=== PATIENT | female | born 1980 | race Caucasian/White ===

== ENCOUNTER 2017-06-17 11:53 | Emergency (ER) | payer BC, OTHER ==
[~2017-06-17] VITALS: Ht 165.1 cm; Wt 62.6 kg
[2017-06-17 12:04] VITALS: BP_SYST 160
[2017-06-17] MEDS ORDERED: ONDANSETRON 4 MG ODT TAB PO ONE (13:45)
[2017-06-17] MEDS ORDERED: ACETAMINOPHEN 325 MG TABLET PO ONE (13:45)
[2017-06-17 14:03] LABS: BASOPHILS % (AUTO) 0.5 % (0.0-2.0); EOSINOPHILS # (AUTO) 0.1 K/uL (0.0-0.4); EOSINOPHILS % (AUTO) 0.8 % (0.0-4.0); HEMATOCRIT 38.5 % (36-48); HEMOGLOBIN 12.7 g/dL (12.0-16.0); LYMPHOCYTES # (AUTO) 1.1 K/uL (1.0-5.5); LYMPHOCYTES % (AUTO) 12.9 % (20.5-51.5); MEAN CORPUSCULAR HEMOGLOBIN 29 pg (27-31); MEAN CORPUSCULAR HGB CONC 33 % (32-36); MEAN CORPUSCULAR VOLUME 87 fL (79.0-98.0); MONOCYTES # (AUTO) 0.5 K/uL (0.0-1.0); MONOCYTES % (AUTO) 5.7 % (1.7-9.3); NEUTROPHILS # (AUTO) 6.8 K/uL (1.8-7.7); NEUTROPHILS % (AUTO) 80.1 % (40.0-70.0); PLATELET COUNT (AUTO) 451 K/uL (130-430); RED BLOOD CELL COUNT(AUTO) 4.42 MIL/uL (4.2-6.2); RED CELL DISTRIBUTION WIDTH 14.5 % (9.0-15.0); WHITE BLOOD COUNT (AUTO) 8.5 K/uL (4.8-10.8)
[2017-06-17 14:13] LABS: BILIRUBIN,URINE NEGATIVE (NEGATIVE); BLOOD, URINE NEGATIVE (NEGATIVE); CLARITY/URINE CLEAR (CLEAR); COLOR,URINE YELLOW (YELLOW); GLUCOSE,URINE NEGATIVE (NEGATIVE); KETONES,URINE NEGATIVE (NEGATIVE); LEUKOCYTE ESTERASE ,URINE NEGATIVE (NEGATIVE); NITRITE, URINE NEGATIVE (NEGATIVE); PH,URINE 6.5 (5.0-8.0); PROTEIN URINE NEGATIVE (NEGATIVE); UROBILINOGEN,URINE 0.2 (0.2-1.0)
[2017-06-17 14:20] LABS: CALCIUM 8.8 mg/dL (8.4-11.0); CREATININE 0.67 mg/dL (0.55-1.30); POTASSIUM 4.4 mmol/L (3.5-5.1)
[2017-06-17 14:46] LABS: ALBUMIN 3.6 g/dL (3.4-4.8); TOTAL BILIRUBIN 0.3 mg/dL (0.0-1.0)
[2017-06-17 17:00] VITALS: BP_SYST 147
== END 2017-06-17 17:00 | disposition home or self-care (01) ==
LOC: SED 11:53
DX: O26.891 Other specified pregnancy related conditions, first trimester (principal); R10.2 Pelvic and perineal pain; M79.601 Pain in right arm; R03.0 Elevated blood-pressure reading, without diagnosis of hypertension; Z87.891 Personal history of nicotine dependence; Z3A.01 Less than 8 weeks gestation of pregnancy
CPT/HCPCS: 36415; 76801; 76817; 80053; 81003; 81025; 84702; 85025; 87210; 99285; Q0162; 86901

== ENCOUNTER 2020-03-31 22:41 | Emergency (ER) | payer BC, MEDICAID ==
[~2020-03-31] VITALS: Ht 162.6 cm; Wt 61.2 kg
[2020-03-31 22:45] VITALS: BP_SYST 161
[2020-03-31] MEDS ORDERED: NACL 0.9% 1,000 ML IV ONE (23:45)
[2020-03-31] MEDS ORDERED: ONDANSETRON HCL 4 MG/2 ML VIAL IVP ONE (23:45)
[2020-03-31] MEDS ORDERED: KETOROLAC TROMETHAMINE 30 MG VIAL IVP ONE (23:45)
[2020-03-31 23:57] LABS: BASOPHILS % (AUTO) 0.8 % (0.0-2.0); EOSINOPHILS # (AUTO) 0.1 K/uL (0.0-0.4); EOSINOPHILS % (AUTO) 1.7 % (0.0-4.0); HEMATOCRIT 37.3 % (36-48); HEMOGLOBIN 12.8 g/dL (12.0-16.0); LYMPHOCYTES # (AUTO) 1.5 K/uL (1.0-5.5); LYMPHOCYTES % (AUTO) 30.2 % (20.5-51.5); MEAN CORPUSCULAR HEMOGLOBIN 30 pg (27-31); MEAN CORPUSCULAR HGB CONC 34 % (32-36); MEAN CORPUSCULAR VOLUME 88 fL (79.0-98.0); MONOCYTES # (AUTO) 0.5 K/uL (0.0-1.0); MONOCYTES % (AUTO) 10.8 % (1.7-9.3); NEUTROPHILS # (AUTO) 2.8 K/uL (1.8-7.7); NEUTROPHILS % (AUTO) 56.5 % (40.0-70.0); PLATELET COUNT (AUTO) 422 K/uL (130-430); RED BLOOD CELL COUNT(AUTO) 4.23 MIL/uL (4.2-6.2); RED CELL DISTRIBUTION WIDTH 13.8 % (9.0-15.0)
[2020-04-01 00:11] LABS: CALCIUM 8.6 mg/dL (8.4-11.0); CREATININE 0.88 mg/dL (0.55-1.30); POTASSIUM 3.8 mmol/L (3.5-5.1)
[2020-04-01 00:12] LABS: BILIRUBIN,URINE NEGATIVE (NEGATIVE); BLOOD, URINE 2+ (NEGATIVE); CLARITY/URINE CLEAR (CLEAR); COLOR,URINE YELLOW (YELLOW); GLUCOSE,URINE NEGATIVE (NEGATIVE); KETONES,URINE 1+ (NEGATIVE); LEUKOCYTE ESTERASE ,URINE NEGATIVE (NEGATIVE); NITRITE, URINE NEGATIVE (NEGATIVE); PROTEIN URINE NEGATIVE (NEGATIVE); UROBILINOGEN,URINE 0.2 (0.2-1.0)
[2020-04-01 00:21] LABS: BACTERIA,URINE MODERATE /HPF (None Seen); WBC,URINE 0-3 /HPF (0-3)
[2020-04-01 00:22] LABS: ALBUMIN 3.8 g/dL (3.4-4.8); TOTAL BILIRUBIN 1.2 mg/dL (0.0-1.0)
[2020-04-01 03:14] VITALS: BP_SYST 134
== END 2020-04-01 03:14 | disposition home or self-care (01) ==
LOC: SED 22:41
DX: D25.9 Leiomyoma of uterus, unspecified (principal); R19.7 Diarrhea, unspecified; R10.2 Pelvic and perineal pain; R10.33 Periumbilical pain; I10 Essential (primary) hypertension; F17.200 Nicotine dependence, unspecified, uncomplicated
CPT/HCPCS: 36415; 74176; 76856; 80053; 81000; 81025; 83690; 84702; 85025; 87086; 96361; 96374; 96375; 99285; J1885; J2405; J7030

== ENCOUNTER 2023-01-19 19:57 | Emergency (ER) | payer MEDICAID, OTHER ==
[~2023-01-19] VITALS: Ht 162.6 cm; Wt 63.5 kg
[2023-01-19 20:00] VITALS: BP_SYST 161; PULSE 117; RESP 18; TEMP 97.8; O2SAT 100
[2023-01-19 22:36] LABS: BASOPHILS % (AUTO) 0.8 % (0.0-2.0); EOSINOPHILS # (AUTO) 0.1 K/uL (0.0-0.4); EOSINOPHILS % (AUTO) 1.7 % (0.0-4.0); HEMATOCRIT 34.6 % (36-48); LYMPHOCYTES # (AUTO) 1.3 K/uL (1.0-5.5); LYMPHOCYTES % (AUTO) 23.7 % (20.5-51.5); MEAN CORPUSCULAR HEMOGLOBIN 27 pg (27-31); MEAN CORPUSCULAR HGB CONC 32 % (32-36); MEAN CORPUSCULAR VOLUME 85 fL (79.0-98.0); MONOCYTES # (AUTO) 0.6 K/uL (0.0-1.0); MONOCYTES % (AUTO) 11.7 % (1.7-9.3); NEUTROPHILS # (AUTO) 3.4 K/uL (1.8-7.7); NEUTROPHILS % (AUTO) 62.1 % (40.0-70.0); PLATELET COUNT (AUTO) 378 K/uL (130-430); RED BLOOD CELL COUNT(AUTO) 4.06 MIL/uL (4.2-6.2); RED CELL DISTRIBUTION WIDTH 17.2 % (9.0-15.0); WHITE BLOOD COUNT (AUTO) 5.5 K/uL (4.8-10.8)
[2023-01-19 22:49] LABS: BILIRUBIN,URINE NEGATIVE (NEGATIVE); BLOOD, URINE NEGATIVE (NEGATIVE); CLARITY/URINE CLEAR (CLEAR); COLOR,URINE YELLOW (YELLOW); GLUCOSE,URINE NEGATIVE (NEGATIVE); KETONES,URINE NEGATIVE (NEGATIVE); LEUKOCYTE ESTERASE ,URINE NEGATIVE (NEGATIVE); NITRITE, URINE NEGATIVE (NEGATIVE); PROTEIN URINE NEGATIVE (NEGATIVE)
[2023-01-19 22:49] LABS: ALBUMIN 3.3 g/dL (3.4-4.8); CALCIUM 8.3 mg/dL (8.4-11.0); CREATININE 0.71 mg/dL (0.55-1.30); TOTAL BILIRUBIN 0.5 mg/dL (0.0-1.0)
[2023-01-19 23:05] LABS: HCG,QUAL RESULT NEGATIVE (NEGATIVE)
[2023-01-19] MEDS ORDERED: MEDR10TA72 PO (23:06)
[2023-01-19] MEDS ORDERED: NAPR-688 PO (23:06)
== END 2023-01-19 23:12 | disposition home or self-care (01) ==
LOC: SED 19:57
DX: N93.8 Other specified abnormal uterine and vaginal bleeding (principal); R10.2 Pelvic and perineal pain; R30.0 Dysuria; Z79.899 Other long term (current) drug therapy
CPT/HCPCS: 36415; 80053; 81003; 84703; 85025; 99283